=== PATIENT | female | born 1970 | race African-American/Black ===

== ENCOUNTER 2024-07-18 10:06 | Inpatient (IN) | payer OTHER ==
[~2024-07-18] VITALS: Ht 170.2 cm; Wt 85.3 kg
[2024-07-18 11:32] LABS: BASOPHILS % 0.6 % (0.0-2.0); EOSINOPHILS % 0.9 % (0.0-5.0); HEMATOCRIT. 40.5 % (36.0-48.0); HEMOGLOBIN. 13.2 g/dL (12.0-16.0); LYMPHOCYTES % 29.7 % (20.0-50.0); MEAN CORPUSCULAR HEMOGLOBIN 26.5 pg (28.0-32.0); MEAN CORPUSCULAR HGB CONC 32.7 g/dL (31.0-37.0); MEAN CORPUSCULAR VOLUME 81.1 fL (81.0-99.0); MEAN PLATELET VOLUME 8.1 fl (7.4-10.4); MONOCYTES % 12.3 % (2.0-8.0); NEUTROPHILS % 56.5 % (40.0-76.0); PLATELET 260 x1000/uL (130-400); RED BLOOD CELL COUNT 4.99 mill/uL (4.2-5.4); RED CELL DISTRIBUTION WIDTH 16.6 % (11.6-14.6); WHITE BLOOD COUNT 3.6 x1000/uL (4.5-11.0)
[2024-07-18 11:35] LABS: CHLORIDE 109 mEq/L (98-107); POTASSIUM 3.8 mEq/L (3.5-5.1); SODIUM 140 mEq/L (136-145)
[2024-07-18 11:36] LABS: CALCIUM 9.5 mg/dL (8.7-10.4); CARBON DIOXIDE 25 mEq/L (21-32)
[2024-07-18 11:41] LABS: CREATININE 1.1 mg/dL (0.6-1.0); GLUCOSE 110 mg/dL (70-105); UREA NITROGEN BLOOD 15 mg/dL (9-23)
[2024-07-18 11:54] LABS: ETHANOL BLOOD < 10 mg/dL (<10); TROPONIN I HIGH SENSITIVITY 83 ng/L (3.0-34)
[2024-07-18] MEDS ORDERED: DOCUSATE SODIUM 100MG CAPSULE PO PRN (13:00)
[2024-07-18] MEDS ORDERED: IPRATROPIUM/ALBUTEROL 0.5-3(2.5)MG/3ML NEB HHN PRN (13:00)
[2024-07-18] MEDS ORDERED: MAGNESIUM/ALUMINUM HYDROXIDE/SIMETHICONE 30ML UDC PO PRN (13:00)
[2024-07-18] MEDS: CLOPIDOGREL 75MG TABLET PO SCH (14:59)
[2024-07-18] MEDS: AMLODIPINE 5MG TABLET PO SCH (14:59)
[2024-07-18] MEDS: ENOXAPARIN 40MG/0.4ML SYR SUBCUT SCH (15:00)
[2024-07-18] MEDS: LOSARTAN 50 MG TABLET PO SCH (15:03)
[2024-07-18 15:08] LABS: VITAMIN B12 SERUM 954 pg/mL (211-911)
[2024-07-18 15:09] LABS: T4 FREE 1.16 ng/dL (0.89-1.76); THYROID STIMULATING HORMONE 0.84 uIU/mL (0.55-4.78)
[2024-07-18 15:22] LABS: FOLIC ACID (FOLATE) SERUM > 20.00 ng/mL (>5.38)
[2024-07-18 15:38] LABS: TROPONIN I HIGH SENSITIVITY 81 ng/L (3.0-34)
[2024-07-18] MEDS: ASPIRIN 325MG EC TABLET PO NR (16:10)
[2024-07-18] MEDS: ASPIRIN 325MG EC TABLET PO ONE (16:10)
[2024-07-18] MEDS: CLONIDINE 0.1MG TABLET PO PRN (16:47)
[2024-07-18] MEDS: ISOSORBIDE MONONITRATE 30MG TABLET SR 24HR PO SCH (18:59)
[2024-07-18 20:30] VITALS: BP 155/94; PULSE 63; RESP 18; TEMP 36.55848; O2SAT 100
[2024-07-18] MEDS: CARVEDILOL 3.125 MG TABLET PO SCH (21:05)
[2024-07-18] MEDS: FAMOTIDINE 20MG TABLET PO SCH (21:05)
[2024-07-18] MEDS: ATORVASTATIN CALCIUM 40MG TABLET PO SCH (21:05)
[2024-07-18 21:35] VITALS: BP 155/94; PULSE 63; RESP 17; TEMP 36.6404
[2024-07-18 22:02] LABS: CREATINE KINASE 91 IU/L (34-145); TROPONIN I HIGH SENSITIVITY 81 ng/L (3.0-34)
[2024-07-18] MEDS ORDERED: ATOR20TA PO (22:55)
[2024-07-18] MEDS ORDERED: LOSA50TA41 MT (22:55)
[2024-07-19] VITALS: BP 174/96; PULSE 63; RESP 18; TEMP 36.78072; O2SAT 100
[2024-07-19] MEDS: ACETAMINOPHEN 325MG TABLET PO PRN (01:13)
[2024-07-19 04:00] VITALS: BP 150/86; PULSE 57; RESP 18; TEMP 37.16964; O2SAT 100
[2024-07-19 08:00] VITALS: BP 157/88; PULSE 60; RESP 20; TEMP 36.61404; O2SAT 100
[2024-07-19 09:32] LABS: CHLORIDE 107 mEq/L (98-107); POTASSIUM 3.9 mEq/L (3.5-5.1); SODIUM 138 mEq/L (136-145)
[2024-07-19 09:33] LABS: CALCIUM 9.3 mg/dL (8.7-10.4); CARBON DIOXIDE 25 mEq/L (21-32)
[2024-07-19 09:38] LABS: GLUCOSE 118 mg/dL (70-105); UREA NITROGEN BLOOD 13 mg/dL (9-23)
[2024-07-19 09:40] LABS: CREATINE KINASE 70 IU/L (34-145)
[2024-07-19 09:47] LABS: TROPONIN I HIGH SENSITIVITY 55 ng/L (3.0-34)
[2024-07-19 09:50] LABS: BASOPHILS % 0.3 % (0.0-2.0); EOSINOPHILS % 1.1 % (0.0-5.0); HEMATOCRIT. 37.4 % (36.0-48.0); HEMOGLOBIN. 12.1 g/dL (12.0-16.0); LYMPHOCYTES % 28.4 % (20.0-50.0); MEAN CORPUSCULAR HEMOGLOBIN 26.5 pg (28.0-32.0); MEAN CORPUSCULAR HGB CONC 32.4 g/dL (31.0-37.0); MEAN CORPUSCULAR VOLUME 81.7 fL (81.0-99.0); MEAN PLATELET VOLUME 8.4 fl (7.4-10.4); MONOCYTES % 10.2 % (2.0-8.0); PLATELET 253 x1000/uL (130-400); RED BLOOD CELL COUNT 4.57 mill/uL (4.2-5.4); WHITE BLOOD COUNT 4.3 x1000/uL (4.5-11.0)
[2024-07-19 09:53] LABS: HEPATITIS B SURFACE ANTIGEN NEGATIVE (Negative)
[2024-07-19 10:14] LABS: HEPATITIS C AB NON REACTIVE (Neg) (Negative)
[2024-07-19] MEDS: ASPIRIN 81MG EC TABLET PO SCH (11:33)
[2024-07-19 12:00] VITALS: BP 155/78; PULSE 58; RESP 19; TEMP 36.44736; O2SAT 100
[2024-07-19] MEDS ORDERED: ENALAPRIL 0.625 MG in DEXTROSE 5% WATER 49.5 ML IV PRN (15:30)
[2024-07-19 16:00] VITALS: BP 154/80; PULSE 66; RESP 20; TEMP 36.50292; O2SAT 100
[2024-07-19] MEDS: HYDRALAZINE 20MG/ML VIAL IV PRN (19:48)
[2024-07-19 20:00] VITALS: BP 190/99; PULSE 74; RESP 18; TEMP 36.22512; O2SAT 99
[2024-07-19] MEDS: SPIRONOLACTONE 25MG TABLET PO SCH (20:51)
[2024-07-19] MEDS: ATORVASTATIN CALCIUM 40MG TABLET PO SCH (20:52)
[2024-07-19] MEDS: CARVEDILOL 6.25 MG TABLET PO SCH (20:52)
[2024-07-19] MEDS: LOSARTAN 50 MG TABLET PO SCH (20:52)
[2024-07-19] MEDS ORDERED: CARVEDILOL 3.125 MG TABLET PO SCH (21:00)
[2024-07-19] MEDS ORDERED: CARVEDILOL 6.25 MG TABLET PO SCH (21:00)
[2024-07-20] VITALS: BP 160/84; PULSE 68; RESP 17; TEMP 36.44736; O2SAT 100
[2024-07-20 04:00] VITALS: BP 180/106; PULSE 76; RESP 18; TEMP 36.33624; O2SAT 99
[2024-07-20 08:00] VITALS: BP 142/99; PULSE 77; RESP 18; TEMP 36.50292; O2SAT 98
[2024-07-20] MEDS ORDERED: CLONIDINE 0.2MG TABLET PO PRN (08:20)
[2024-07-20] MEDS: ISOSORBIDE MONONITRATE 60MG TABLET SR 24HR PO SCH (08:56)
[2024-07-20 09:47] LABS: CHLORIDE 108 mEq/L (98-107); POTASSIUM 3.6 mEq/L (3.5-5.1); SODIUM 138 mEq/L (136-145)
[2024-07-20 09:48] LABS: CARBON DIOXIDE 23 mEq/L (21-32)
[2024-07-20 09:49] LABS: BASOPHILS % 0.5 % (0.0-2.0); CALCIUM 9.6 mg/dL (8.7-10.4); EOSINOPHILS % 0.4 % (0.0-5.0); HEMATOCRIT. 41.7 % (36.0-48.0); HEMOGLOBIN. 13.5 g/dL (12.0-16.0); LYMPHOCYTES % 20.4 % (20.0-50.0); MEAN CORPUSCULAR HEMOGLOBIN 26.8 pg (28.0-32.0); MEAN CORPUSCULAR HGB CONC 32.4 g/dL (31.0-37.0); MEAN CORPUSCULAR VOLUME 82.7 fL (81.0-99.0); MEAN PLATELET VOLUME 8.6 fl (7.4-10.4); MONOCYTES % 10.3 % (2.0-8.0); NEUTROPHILS % 68.4 % (40.0-76.0); PLATELET 277 x1000/uL (130-400); RED BLOOD CELL COUNT 5.04 mill/uL (4.2-5.4); RED CELL DISTRIBUTION WIDTH 16.4 % (11.6-14.6); WHITE BLOOD COUNT 4.8 x1000/uL (4.5-11.0)
[2024-07-20 09:53] LABS: CREATININE 0.9 mg/dL (0.6-1.0); GLUCOSE 127 mg/dL (70-105); UREA NITROGEN BLOOD 9 mg/dL (9-23)
[2024-07-20] MEDS: ONDANSETRON HCL 4MG/2ML INJ IV PRN (10:44)
[2024-07-20 12:00] VITALS: BP 152/85; PULSE 74; RESP 19; TEMP 36.3918; O2SAT 96
[2024-07-20 16:00] VITALS: BP 149/82; PULSE 59; RESP 18; TEMP 36.50292; O2SAT 97
[2024-07-20 20:00] VITALS: BP 175/98; PULSE 64; RESP 19; TEMP 36.50292; O2SAT 97
[2024-07-20] MEDS: MINOXIDIL 2.5MG TABLET PO SCH (20:20)
[2024-07-21] VITALS: BP 174/97; PULSE 17; RESP 18; TEMP 36.55848; O2SAT 97
[2024-07-21 04:00] VITALS: BP 154/95; PULSE 79; RESP 17; TEMP 36.55848; O2SAT 98
[2024-07-21 06:38] LABS: CALCIUM 9.8 mg/dL (8.7-10.4); CARBON DIOXIDE 23 mEq/L (21-32); CHLORIDE 105 mEq/L (98-107); POTASSIUM 3.7 mEq/L (3.5-5.1); SODIUM 137 mEq/L (136-145)
[2024-07-21 06:43] LABS: GLUCOSE 122 mg/dL (70-105)
[2024-07-21 06:44] LABS: UREA NITROGEN BLOOD 10 mg/dL (9-23)
[2024-07-21 06:56] LABS: BASOPHILS % 0.4 % (0.0-2.0); EOSINOPHILS % 0.3 % (0.0-5.0); HEMATOCRIT. 41.5 % (36.0-48.0); HEMOGLOBIN. 13.5 g/dL (12.0-16.0); LYMPHOCYTES % 21.3 % (20.0-50.0); MEAN CORPUSCULAR HEMOGLOBIN 26.5 pg (28.0-32.0); MEAN CORPUSCULAR HGB CONC 32.6 g/dL (31.0-37.0); MEAN CORPUSCULAR VOLUME 81.4 fL (81.0-99.0); MEAN PLATELET VOLUME 8.4 fl (7.4-10.4); MONOCYTES % 12.1 % (2.0-8.0); NEUTROPHILS % 65.9 % (40.0-76.0); PLATELET 280 x1000/uL (130-400); RED CELL DISTRIBUTION WIDTH 16.7 % (11.6-14.6); WHITE BLOOD COUNT 4.5 x1000/uL (4.5-11.0)
[2024-07-21 07:03] LABS: TROPONIN I HIGH SENSITIVITY 175 ng/L (3.0-34)
[2024-07-21 08:00] VITALS: BP 162/92; PULSE 71; RESP 18; TEMP 36.55848; O2SAT 98
[2024-07-21] MEDS: ISOSORBIDE MONONITRATE 60MG TABLET SR 24HR PO SCH (09:22)
[2024-07-21 12:00] VITALS: BP 146/85; PULSE 63; RESP 19; TEMP 36.61404; O2SAT 97
[2024-07-21] MEDS ORDERED: MINO2.5T19 PO (13:56)
[2024-07-21] MEDS ORDERED: AMLO5TAB88 PO (13:56)
[2024-07-21] MEDS ORDERED: ISOS60TA76 PO (13:56)
[2024-07-21] MEDS ORDERED: COR6 PO (13:56)
[2024-07-21] MEDS ORDERED: LIP40 PO (13:56)
[2024-07-21] MEDS ORDERED: CLOP-31 PO (13:56)
[2024-07-21] MEDS ORDERED: ASPI-1406 PO (13:56)
[2024-07-21] MEDS ORDERED: LOSA50TA41 PO (13:56)
[2024-07-21] MEDS ORDERED: SPIR25TA PO (13:56)
[2024-07-21 14:56] VITALS: BP 146/85; PULSE 63; TEMP 97.9; O2SAT 98
[2024-07-21 16:00] VITALS: BP 136/89; PULSE 93; RESP 18; TEMP 36.55848; O2SAT 97
== END 2024-07-21 17:40 | disposition home health service (06) | DRG 64 ==
LOC: ER 10:06 → EDBEDREQ 11:06 → 7EST 20:28
PROVIDERS: ADMIT Internal Medicine; ATTEND Internal Medicine
DX: I63.89 Other cerebral infarction (principal); I21.4 Non-ST elevation (NSTEMI) myocardial infarction; G45.9 Transient cerebral ischemic attack, unspecified; I16.1 Hypertensive emergency; R29.810 Facial weakness; I11.9 Hypertensive heart disease without heart failure; I16.0 Hypertensive urgency; E23.6 Other disorders of pituitary gland; R47.1 Dysarthria and anarthria; R53.1 Weakness; E78.5 Hyperlipidemia, unspecified; Z79.82 Long term (current) use of aspirin; Z86.73 Personal history of transient ischemic attack (TIA), and cerebral infarction without residual deficits; Z79.02 Long term (current) use of antithrombotics/antiplatelets; Z91.148 Patient's other noncompliance with medication regimen for other reason; Z91.199 Patient's noncompliance with other medical treatment and regimen due to unspecified reason
CPT/HCPCS: 36415; 70551; 71045; 80048; 80061; 80320; 82550; 82607; 82746; 84439; 84443; 84484; 85025; 86705; 87340; 93005; 93306; 93880; 93970; 97161; 99291; J0360; J1650; J2405; G0480